=== PATIENT | female | born 1965 | race Caucasian/White ===

== ENCOUNTER 2023-03-07 12:52 | Emergency (ER) | payer BC | END 2023-03-07 14:22 | disposition home or self-care (01) | LOC: JP.ED 12:52 → EDSEX 12:52 → JP.ED 14:22 | DX: S01.81XA Laceration without foreign body of other part of head, initial encounter (principal); W18.30XA Fall on same level, unspecified, initial encounter | CPT/HCPCS: 12011; 99282 ==